=== PATIENT | female | born 1960 ===

== ENCOUNTER 2025-02-25 05:44 | Day surgery (SDC) | payer OTHER ==
[2025-02-19 09:28] VITALS: BP 90/50
[2025-02-19 09:32] LABS: HEMATOCRIT 35.9 % (36.0-45.00); MEAN CELL VOLUME 88.9 fL (80.00-100.00); MEAN CORPUSCULAR HEMOGLOBIN 29.7 pg (27.00-32.0); MEAN CORPUSCULAR HGB CONC 33.4 g/dl (32.0-36.0); PLATELET COUNT 243 K/uL (150-450); RED BLOOD COUNT 4.04 M/uL (4.00-6.00); RED CELL DISTRIBUTION WIDTH 13.3 % (11.5-14.5)
[2025-02-19 09:40] LABS: URINE APPEARANCE Clear; URINE BILIRRUBIN Negative (NEGATIVE); URINE BLOOD Negative; URINE COLOR Yellow; URINE KETONE Negative (NEGATIVE); URINE LEUKOCYTE Negative; URINE NITRATE Negative; URINE PROTEIN 30 (NEGATIVE); URINE UROBILINOGEN 0.2 E.U./dl
[2025-02-19 09:45] LABS: URINE BACTERIA 330.3 uL (0.0-1933); URINE CAST 2.65 uL (0.0-1.40); URINE EPITHELIAL CELLS 8.5 uL (0.0-38.8); URINE WBC 3.6 uL (0.0-23.2)
[2025-02-19 09:58] LABS: URINE GLUCOSE >=1000 MG/DL (NEGATIVE); URINE RBC 1.4 uL (0.0-20.8)
[2025-02-19 10:05] LABS: INR 1.04; PARTIAL THROMBOPLASTIN TIME 30.6 SECONDS (22.0-34.0); PROTHROMBIN TIME 11.3 SECONDS (9.0-11.5)
[2025-02-19 10:15] LABS: ALBUMIN 3.9 gm/dL (3.4-5.0); BILIRUBIN TOTAL 0.63 mg/dL (0.3-1.2); CALCIUM 9.7 mg/dL (8.5-10.1); CREATININE SERUM 1.73 mg/dL (0.55-1.02); GFR 29.56; POTASSIUM 4.73 mEq/L (3.5-5.1); TOTAL PROTEIN 7.9 gm/dL (6.4-8.2); TSH 3.05 uIU/mL (0.358-3.74)
[~2025-02-25] VITALS: Ht 167.6 cm; Wt 124.3 kg
[~2025-02-25 05:44] MED LIST: ELIQUIS5 MG PO; GLIMEPIRIDE4 MG; HUMULIN N100 UNIT/2; HUMULIN R100 UNIT/1; JARDIANCE25 MG PO; MOUNJARO5 MG/0.5 M SQ; NEURONTIN300 MG
[2025-02-25] MEDS ORDERED: POVIDONE-IODINE 118 ML BOTT TOP ONE (07:15)
[2025-02-25] MEDS ORDERED: CEFOXITIN SODIUM 2,000 MG VIAL IV ONE (07:20)
[2025-02-25] MEDS ORDERED: MORPHINE SULFATE 4 MG/ML VIAL IV PRN (11:30)
[2025-02-25] MEDS ORDERED: PROMETHAZINE HCL 50 MG/ML AMPUL IM ONE (11:30)
[2025-02-25] MEDS ORDERED: MONODOX100 MG PO (11:34)
[2025-02-25] MEDS ORDERED: NAPR500T14 PO (11:34)
[2025-02-25] MEDS ORDERED: MORPHINE SULFATE 4 MG/ML VIAL IV ONE (11:40)
== END 2025-02-25 15:05 | disposition home or self-care (01) ==
LOC: CIR.AMB 05:44
PROVIDERS: ATTEND Obstetrics & Gynecology
DX: D25.0 Submucous leiomyoma of uterus (principal); N95.0 Postmenopausal bleeding; N84.0 Polyp of corpus uteri; I10 Essential (primary) hypertension; E11.9 Type 2 diabetes mellitus without complications